=== PATIENT | male | born 1965 | race Caucasian/White ===

== ENCOUNTER 2019-02-15 17:17 | Emergency (ER) | payer OTHER ==
[2019-02-15 17:24] VITALS: BP 165/94; PULSE 70
--- NOTE | 2019-02-15 17:47 | EDM.PDOC ---
ED HPI GENERAL MEDICAL PROBLEM - General Chief Complaint: Trauma Stated Complaint: [facility] Time Seen by Provider: 02/15/19 17:37 - History of Present Illness INITIAL COMMENTS - FREE TEXT/NARRATIVE: 53-year-old male brought in by EMS after falling off a ladder. 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 The patient cannot recall how high up he was but the ladder collapsed and he fell he is not sure how he landed. He did get up and move around and attempted to clean the side windows of his truck but this became too painful fairly quick. He went inside truck stop and rested when he tried to get up and move he had excruciating pain in his left flank area. Also brown this time he noticed some numbness and tingling down his right arm and leg. And by the time he got here he had the same sensation down his left side this did get better on its own the patient currently takes Lyrica because of significant discogenic and radicular pain around his chest at C6-7. The patient cannot recall if he hit his head. But his is concerned that his memory is not what it should be. At the time of arrival here the patient has significant neck discomfort left-sided back pain that numbness and tingling he felt his extremity seems to be getting better. Back Pain Score (Numeric/FACES): 5 - Related Data Allergies Allergy/AdvReac Type Severity Reaction Status Date / Time No Known Allergies Allergy Verified 02/15/19 17:24 Home Meds: Home Meds Aspirin 81 mg PO DAILY 10/19/14 [History] Citalopram [Citalopram Hbr] 40 mg PO DAILY 10/19/14 [History] Lisinopril 10 mg PO DAILY 10/19/14 [History] Multivit &Minerals/Ferrous Fum [Complete Multivit-Mineral Liq] 9 mg PO DAILY 02/23 [History] Cyclobenzaprine [Flexeril] 10 mg PO TID #15 tab 02/15/19 [Rx] Naproxen [Naprosyn] 500 mg PO Q12HR #14 tab 02/15/19 [Rx] Pregabalin [Lyrica] 75 mg PO BID 02/15/19 [History] Past Medical History HEENT History: Reports: Impaired Vision Other HEENT History: wears glasses Cardiovascular History: Reports: Hypertension Respiratory History: Reports: Sleep Apnea Musculoskeletal History: Reports: Other (See Below) Other Musculoskeletal History: 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 Denies: No Symptoms, Constipation, Nausea, Vomiting, Other Genitourinary: Reports: No Symptoms Musculoskeletal: Reports: Neck Pain, Back Pain Skin: Reports: No Symptoms Neurological: Reports: Headache, Paresthesia. Denies: Seizure, Syncope, Tremors Psychiatric: Reports: No Symptoms ED EXAM, GENERAL - Physical Exam Exam: See Below Exam Limited By: No Limitations General Appearance: Alert, No Apparent Distress, Other (Nearly immediately after my initial evaluation the patient had a c-collar placed) Ears: Normal External Exam, Normal Canal, Hearing Grossly Normal, Normal TMs Nose: Normal Inspection, Normal Mucosa, No Blood Throat/Mouth: Normal Inspection, Normal Lips, Normal Teeth, Normal Gums, Normal Oropharynx, Normal Voice, No Airway Compromise Head: Atraumatic, Normocephalic, Other (No real signs of trauma) Neck: Tender Lateral (Worse in the left paraspinous muscles initially had some significant midline discomfort), Tender Midline. No: Lymphadenopathy (L), Lymphadenopathy (R) Respiratory/Chest: No Respiratory Distress, Lungs Clear, Normal Breath Sounds Cardiovascular: Regular Rate, Rhythm, No Edema GI/Abdominal: Normal Bowel Sounds, Soft, Other (Some vague left-sided discomfort exam is somewhat limited by has body habitus and abdominal obesity) Back Exam: Normal Inspection, Paraspinal Tenderness, Vertebral Tenderness, Other (Diffuse tenderness down the full length of the thoracic and lumbar spine no step-off deformities. Early in the exam the patient was log rolled after he had the c-collar placed allowing full visualization and exam of his back) Extremities: Normal Inspection, Normal Range of Motion, Non-Tender, No Pedal Edema, Normal Capillary Refill Neurological: Alert, Oriented, Normal Cognition Psychiatric: Normal Affect, Normal Mood Course - Vital Signs Last Recorded V/S: Last Vital Signs Temp 36.8 C 02/15/19 17:20 Pulse 70 02/15/19 17:20 Resp 19 02/15/19 17:20 BP 165/94 H 02/15/19 17:20 Pulse Ox 97 02/15/19 17:20 - Orders/Labs/Meds Labs: Laboratory Tests 02/15/19 02/15/19 02/15/19 Range/Units 18:30 18:30 18:55 WBC 7.84 (4.23-9.07) K/mm3 RBC 4.57 L (4.63-6.08) M/mm3 Hgb 14.2 (13.7-17.5) gm/dl Hct 40.4 (40.1-51.0) % MCV 88.4 (79.0-92.2) fl MCH 31.1 (25.7-32.2) pg MCHC 35.1 (32.2-35.5) g/dl RDW Std Deviation 41.2 (35.1-43.9) fL Plt Count 217 (163-337) K/mm3 MPV 9.7 (9.4-12.3) fl Neutrophils % (Manual) 55 (40-60) % Band Neutrophils % 0 (0-10) % Lymphocytes % (Manual) 38 (20-40) % Atypical Lymphs % 0 % Monocytes % (Manual) 6 (2-10) % Eosinophils % (Manual) 0 L (0.8-7.0) % Basophils % (Manual) 1 (0.2-1.2) Platelet Estimate Adequate RBC Morph Comment Normal Sodium 138 (136-145) mEq/L Potassium 3.8 (3.5-5.1) mEq/L Chloride 101 (98-107) mEq/L Carbon Dioxide 23 (21-32) mEq/L Anion Gap 17.8 H (5-15) BUN 13 (7-18) mg/dL Creatinine 0.9 (0.7-1.3) mg/dL Est Cr Clr Drug Dosing 99.14 mL/min Estimated GFR (MDRD) > 60 (>60) mL/min BUN/Creatinine Ratio 14.4 (14-18) Glucose 100 (74-106) mg/dL Calcium 9.0 (8.5-10.1) mg/dL Total Bilirubin 0.4 (0.2-1.0) mg/dL AST 29 (15-37) U/L ALT 57 (16-63) U/L Alkaline Phosphatase 74 (46-116) U/L Total Protein 7.3 (6.4-8.2) g/dl Albumin 4.2 (3.4-5.0) g/dl Globulin 3.1 gm/dL Albumin/Globulin Ratio 1.4 (1-2) Urine Color Light yellow (Yellow) Urine Appearance Clear (Clear) Urine pH 6.5 (5.0-8.0) Ur Specific Pollock 1.020 (1.005-1.030) Urine Protein Negative (Negative) Urine Glucose (UA) Negative (Negative) Urine Ketones Negative (Negative) Urine Occult Blood Negative (Negative) Urine Nitrite Negative (Negative) Urine Bilirubin Negative (Negative) Urine Urobilinogen 0.2 (0.2-1.0) Ur Leukocyte Esterase Negative (Negative) Urine RBC 0-5 (0-5) /hpf Urine WBC 0-5 (0-5) /hpf Ur Squamous Epith Cells Not seen (0-5) /hpf Urine Bacteria Rare (FEW) /hpf Urine Mucus Not seen (FEW) /hpf Meds: Medications Discontinued Medications Generic Name Dose Route Start Last Admin Trade Name Adria PRN Reason Stop Dose Admin Cyclobenzaprine HCl 10 mg 02/15/19 20:05 02/15/19 20:13 Flexeril PO 02/15/19 20:06 10 mg ONETIME ONE Administration Sodium Chloride 1,000 mls @ 999 mls/hr 02/15/19 18:17 02/15/19 18:53 Normal Saline IV 02/15/19 19:17 999 mls/hr ONETIME ONE Administration Iopamidol 100 ml 02/15/19 18:24 02/15/19 18:58 Isovue-300 (61%) IVPUSH 02/15/19 18:25 100 ml ONETIME ONE Administration - Re-Assessments/Exams Free Text/Narrative Re-Assessment/Exam: 02/15/19 20:18 With the vagueness in his history and not knowing actually how far he fell, I went ahead and CTs of the head neck chest abdomen pelvis as well as reformatted images of the lumbar and thoracic spines no acute changes were noted on any of this is labs were unrevealing. Incidental findings was a fatty liver he has degenerative joint disease in multiple places fairly significant in his neck he has moderate to severe bilateral neural foraminal stenosis at C6-7 and this is probably what is causing his discomfort that he takes Lyrica for which is actually working pretty well for him. Departure - Departure Time of Disposition: 20:20 Disposition: Home, Self-Care 01 Clinical Impression: Cervical strain, acute, Thoracic back pain, Lumbar pain, Head injury - Discharge Information Prescriptions: Naproxen [Naprosyn] 500 mg PO Q12HR #14 tab Cyclobenzaprine [Flexeril] 10 mg PO TID #15 tab Referrals: PCP,Unknown [Ordering Only Provider] - Forms: ED Department Discharge, ED Return to Work/School Form Additional Instructions: Return to the emergency room with any questions problems worsening symptoms. Follow-up with your L&I physician on Tuesday for recheck. Take the medication as directed. While at the pharmacy black pickler some famotidine, this is the generic for Pepcid and take one twice daily while on the Naprosyn. Establish with a local healthcare provider.
[2019-02-15] MEDS ORDERED: Sodium Chloride 0.9% 1,000 ML IV ONE (18:17)
[2019-02-15] MEDS ORDERED: Iopamidol 612 MG/ML 100 ML Bottle IVPUSH ONE (18:24)
--- NOTE | 2019-02-15 19:30 | CT ---
CT chest Technique: Multiple axial sections through the chest were obtained. Intravenous contrast was utilized. Comparison: No prior chest imaging. Findings: Mediastinum and hilar regions appear within normal limits. No pericardial thickening is seen. No axillary adenopathy is seen. Lungs are clear with no acute parenchymal change. No pleural effusions or pneumothorax is seen. No discrete rib fracture is appreciated. Reconstructed sagittal images show no discrete sternal fracture. Impression: 1. Nothing acute is appreciated on CT study of the chest. Diagnostic code #1 CT abdomen and pelvis Technique: Multiple axial sections were obtained from above the dome of the diaphragm inferiorly through the pubic symphysis. Intravenous contrast was utilized. No oral contrast has been given. Delayed images were obtained through the bladder. Comparison: No prior abdominal imaging. Findings: Liver shows fatty infiltration without focal abnormality being appreciated. Spleen appears within normal limits. Adrenal glands show no nodule. Pancreas is within normal limits. Kidneys show symmetric contrast enhancement without hydronephrosis or mass. Appendix is normal in size. Aorta shows atherosclerotic calcification which continues in the iliac vessels. No aneurysm is seen. No retroperitoneal adenopathy or mesenteric abnormalities are seen. No pelvic mass or adenopathy is seen. Delayed images show contrast within the distal ureters as well as contrast being seen within the bladder. Bone window settings were reviewed which show no discrete pelvic fracture or hip fracture. Impression: 1. Nothing acute is appreciated on CT study of the abdomen and pelvis. 2. Fatty infiltration is seen within the liver. Diagnostic code #2
--- NOTE | 2019-02-15 19:37 | CT ---
Head CT Technique: Multiple axial sections through the brain were obtained. Intravenous contrast was not utilized. Comparison: No prior intracranial imaging. Findings: Ventricles along with basal cisterns and sulci over the convexities appear within normal limits for the patient's age. No abnormal parenchymal densities are seen. No evidence of intracranial hemorrhage. No midline shift or mass effect is seen. Bone window settings were reviewed which show the visualized mastoid sinuses to appear clear. Paranasal sinuses are clear. No acute calvarial abnormality is seen. Impression: 1. Nothing acute is appreciated on noncontrast head CT exam. Diagnostic code #1
--- NOTE | 2019-02-15 19:37 | CT ---
CT cervical spine Technique: Multiple axial sections were obtained from above C1 inferiorly to the top of T2. Reconstructed sagittal and coronal images were reviewed. Comparison: No prior cervical spine imaging. Findings: Mid and lower cervical spine shows artifact from patient body habitus. This diminishes some details of the exam. Findings: Disc space narrowing is noted at C5-6, C6-7 and C7-T1. Slight anterior osteophytes are noted at C4-5 through C7-T1. Mild left-sided neural foraminal stenosis is noted at C5-6. Moderate to severe bilateral neural foraminal stenosis is noted at C6-7. Other neural foramina are felt to be patent. No fracture is appreciated. No abnormal subluxation is seen. Degenerative spurring is noted within the uncovertebral joints at C6-7. Impression: 1. Slightly limited study due to patient body habitus. 2. Degenerative change as noted above. 3. No acute fracture or abnormal subluxation is appreciated. Diagnostic code #2
--- NOTE | 2019-02-15 19:40 | CT ---
CT lumbar spine Technique: Multiple axial sections through the lumbar spine were obtained. Reconstructed coronal and sagittal images were obtained. Findings: Vertebral body heights are maintained. Minimal disc space narrowing is noted at L2-3. Posterior disc space narrowing is seen at L5-S1. Mild anterior osteophytes are noted at L2-3 and L3-4. No fracture is identified. No abnormal subluxation is seen. Sacroiliac joints appear within normal limits. Mild circumferential disc bulging is seen at L2-3 through L4-5. No central canal stenosis or discrete neural foraminal stenosis is seen. No traumatic disc herniation is appreciated. Impression: 1. Slight degenerative change. 2. No acute fracture or abnormal subluxation is seen on CT study of the lumbar spine. Diagnostic code #2
--- NOTE | 2019-02-15 19:40 | CT ---
CT thoracic spine Technique: Multiple axial sections through the thoracic spine were obtained. Reconstructed coronal and sagittal images were obtained. Findings: Mild diffuse disc space narrowing is noted with mild diffuse endplate osteophytes. Mild scattered degenerative change is seen within the apophyseal joints. No fracture is appreciated. No abnormal subluxation is seen. No gross disc herniation is seen. Impression: 1. Mild diffuse degenerative change. 2. Nothing acute is appreciated on CT study of the thoracic spine. Diagnostic code #2
[2019-02-15] MEDS ORDERED: Cyclobenzaprine 10 MG Tab PO ONE (20:05)
== END 2019-02-15 20:37 | disposition home or self-care (01) ==
LOC: JD.ED 17:17
DX: S16.1XXA Strain of muscle, fascia and tendon at neck level, initial encounter (principal); S09.90XA Unspecified injury of head, initial encounter; M54.6 Pain in thoracic spine; M54.5 Low back pain; Z79.82 Long term (current) use of aspirin; I10 Essential (primary) hypertension; Z79.899 Other long term (current) drug therapy; W11.XXXA Fall on and from ladder, initial encounter; Y93.89 Activity, other specified
CPT/HCPCS: 36415; 70450; 71260; 72125; 72128; 72131; 74177; 80053; 81001; 85007; 85027; 96360; 99284; A9270; J7040; Q9967

== ENCOUNTER 2020-02-06 11:47 | Emergency (ER) | payer OTHER ==
[2020-02-06 12:13] VITALS: BP 144/75; PULSE 74
[2020-02-06] MEDS ORDERED: HYDROmorphone 1 MG/ML Syringe IVPUSH ONE (12:27)
[2020-02-06] MEDS ORDERED: Ondansetron 4 MG/2 ML SDV IVPUSH ONE (12:27)
[2020-02-06] MEDS ORDERED: Ketorolac 30 MG/ML SDV IVPUSH SCH (12:30)
[2020-02-06] MEDS ORDERED: Sodium Chloride 0.9% 1,000 ML IV SCH (12:30)
--- NOTE | 2020-02-06 12:34 | EDM.PDOC ---
ED HPI GENERAL MEDICAL PROBLEM - General Chief Complaint: Respiratory Problem Stated Complaint: SOB Time Seen by Provider: 02/06/20 12:15 Source of Information: Reports: Patient History Limitations: Reports: No Limitations - History of Present Illness INITIAL COMMENTS - FREE TEXT/NARRATIVE: 54-year-old male presents to the ED for evaluation after being seen in the clinic by nurse practitioner Estefanía Judge. Patient was diagnosed with COVID-19 positivity December 17 after 2 days of symptoms. He went through the drive-through at the [facility] and was advised of the results a day later. He reports that he got a mild form of the illness with sore throat sinus congestion transient loss of taste and some mild diarrhea. 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 Patient's contracted symptoms 2 days after him. He suspects he got it after a injection in his spine in [place] a few days before he became symptomatic. He did go to [facility] after having his back injected with steroid. Patient did have a significant coughing spell this morning about 0600 hrs. and then developed diffuse left-sided anterior and posterior chest pain with inspiration. Is strongly per Reynaldo pleuritic in nature and is made worse by movement of his left upper extremity. Difficulty getting up off the table in radiology suite due to pain in his back. Patient is in significant discomfort with increased respiratory effort due to splinting. O2 sats are 100% room air. Patient reports that his appetite is returned to normal. He has not been having any significant chest pain up until this morning. Intermittent coughing spells. Labs have been drawn for cardiac markers and D-dimer. He also had a 2 view chest x-ray and two-view abdomen performed prior to coming to the ED. Was able to review the chest x-ray which reveals mild cardiomegaly per portable technique i.e. magnified. There is a trace infiltrate right lower lobe but otherwise the lungs are clear. There is no pneumothorax. Two-view abdomen shows mild increased stool throughout the colon with no evidence of bowel obstruction. Onset: Today, Sudden Onset Date: 02/06/20 Onset Time: 07:00 Duration: Hour(s):, Constant, Getting Worse Location: Reports: Chest Quality: Reports: Ache, Sharp, Stabbing Severity: Severe (9-10 out of 10.) Improves with: Reports: Rest Worsens with: Reports: Other Context: Denies: Activity (Aggravated by movement deep breathing and coughing.), Exercise, Lifting, Sick Contact, Trauma, Other Associated Symptoms: Reports: Cough, cough w sputum (No sputum this morning.), Shortness of Breath. Denies: Diaphoresis, Fever/Chills, Headaches, Loss of Ap petite, Malaise, Nausea/Vomiting, Syncope, Weakness Treatments GARMENT STEAMER: Reports: Other (see below) Other Treatments GARMENT STEAMER: tylenol Left Chest Pain Score (Numeric/FACES): 9 - Related Data Allergies Allergy/AdvReac Type Severity Reaction Status Date / Time No Known Allergies Allergy Verified 02/15/19 17:24 Home Meds: Home Meds Aspirin 81 mg PO DAILY 10/19/14 [History] Lisinopril 10 mg PO DAILY 10/19/14 [History] Multivit-Min/Ferrous Fumarate [Complete Multivit-Mineral Liq] 9 mg PO DAILY 10/19/14 [History] Cyclobenzaprine [Flexeril] 10 mg PO TID #15 tab 02/15/19 [Rx] Pregabalin [Lyrica] 75 mg PO BID 02/15/19 [History] Cyclobenzaprine [Flexeril] 10 mg PO Q8H PRN #21 tab 02/06/20 [Rx] Lisinopril/Hydrochlorothiazide [Lisinopril-Hctz 20-12.5 mg Tab] 1 tab PO DAILY 02/06/20 [History] Meloxicam 15 mg PO DAILY #12 tablet 02/06/20 [Rx] Sertraline [Zoloft] 100 mg PO DAILY 02/06/20 [History] metFORMIN [Glucophage XR] 1,000 mg PO DAILY 02/06/20 [History] oxyCODONE HCl/Acetaminophen [Percocet 10-325 mg Tablet] 1 - 2 each PO Q4H PRN #24 tablet 02/06/20 [Rx] Past Medical History HEENT History: Reports: Impaired Vision Other HEENT History: wears glasses Cardiovascular History: Reports: Hypertension Respiratory History: Reports: Sleep Apnea Musculoskeletal History: Reports: Other (See Below) Other Musculoskeletal History: 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-7 Endocrine/Metabolic History: Reports: Diabetes, Type II (To diabetic control with diet and Metformin.) Social & Family History - Caffeine Use Caffeine Use: Reports: None - Living Situation & Occupation Living situation: Reports: Occupation: Employed (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 It also seems to involve his upper), Cough ( left quadrant of the abdomen.), Sputum (Produced a little bit of yellow sputum this morning.). Denies: Wheezing Cardiovascular: Reports: Chest Pain (See history of present illness diffuse left-sided pleuritic chest pain worsened by cough and movement and deep inspiration.), Blood Pressure Problem. Denies: Claudication, Dyspnea on Exertion, Edema, Lightheadedness, Orthopnea Endocrine: Reports: Fatigue GI/Abdominal: Reports: Abdominal Pain, Constipation (Upper quadrant abdominal discomfort.) : Reports: Frequency, Other (Nocturia x2.) Musculoskeletal: Reports: Back Pain (Neck low back pain with radiculopathy into both upper extremities. Takes Lyrica) Skin: Reports: No Symptoms ( 75 mg twice daily.) Neurological: Reports: Pre-Existing Deficit (Chronic lower back pain with radiculopathy into both lower extremities.) Psychiatric: Reports: No Symptoms Hematologic/Lymphatic: Reports: No Symptoms Immunologic: Reports: No Symptoms ED EXAM, GENERAL - Physical Exam Exam: See Below Exam Limited By: No Limitations General Appearance: Alert, WD/WN, Moderate Distress, Other (Anxious and exhibiting splinting respirations due to pleuritic pain on the left side with deep breathing. O2 sats are 99 to 100% on room air. Respiratory rate of 20 but shallow respirations.) Eye Exam: Bilateral Eye: Normal Inspection, Periorbital Changes Throat/Mouth: Normal Inspection, Normal Lips, Normal Oropharynx, Other (Tongue is mildly dry and coated) Head: Atraumatic, Normocephalic Neck: Normal Inspection, Supple, Non-Tender, Full Range of Motion. No: Carotid Bruit, Lymphadenopathy (L), Lymphadenopathy (R) Respiratory/Chest: Lungs Clear, Normal Breath Sounds, No Accessory Muscle Use, Respiratory Distress (Mild tachypnea with splinting respirations left side), Other (Does have chest wall pain on firm palpation over the fourth and fifth ribs anterior axillary line and mildly in the midclavicular line anterior chest.) Cardiovascular: Normal Peripheral Pulses, Regular Rate, Rhythm, No Edema, No Gallop, No Murmur, No Rub Peripheral Pulses: 3+: Carotid (L), Carotid (R) GI/Abdominal: Normal Bowel Sounds, Soft, Non-Tender, No Organomegaly, Other (Moderately obese.) Back Exam: Other (Lamination of his back reveals diffuse paraspinal muscle spasm on the left side as compared to the right. There are 2 areas of significant point tenderness compatible with rib head subluxation I believe at thoracic 6 7 level and also at the 8-9 for level. Also diffuse pain on palpation of the latissimus dorsi muscle laterally at the T10 level posterior axillary line.) Extremities: Normal Inspection, Normal Range of Motion, Non-Tender, No Pedal Edema Neurological: Alert, Oriented, CN II-XII Intact, Normal Cognition Psychiatric: Anxious, Other Skin Exam: Warm, Dry, Intact, Normal Color, No Rash #1 Interpretation EKG Date: 02/06/20 Time: 13:05 Rhythm: NSR Rate (Beats/Min): 70 [place]: LAD-Left [place] Deviation (Mild left axis deviation -10 degrees) P-Wave: Present QRS: Other (Near Q waves leads III and aVF consider old inferior wall myocardial infarction.) ST-T: Other (T wave flattening in leads I and aVL) QT: Normal EKG Interpretation Comments: Borderline ECG no signs of acute ischemia Course - Vital Signs Last Recorded V/S: Last Vital Signs Temp 36.4 C 02/06/20 12:12 Pulse 74 02/06/20 12:12 Resp 14 02/06/20 12:12 BP 144/75 H 02/06/20 12:12 Pulse Ox 98 02/06/20 12:12 - Orders/Labs/Meds Meds: Medications Discontinued Medications Generic Name Dose Route Start Last Admin Trade Name Freq PRN Reason Stop Dose Admin Hydromorphone HCl 1 mg 02/06/20 12:27 02/06/20 13:15 Dilaudid IVPUSH 02/06/20 12:28 1 mg ONETIME ONE Administration Sodium Chloride 1,000 mls @ 150 mls/hr 02/06/20 12:30 02/06/20 13:14 Normal Saline IV 150 mls/hr ASDIRECTED TETO Administration Influenza Virus Vaccine 60 mcg 02/06/20 14:15 02/06/20 15:10 Fluzone Quad Syringe IM 02/06/20 14:16 60 mcg .ONCE ONE Administration Ketorolac Tromethamine 30 mg 02/06/20 12:30 02/06/20 13:23 Toradol IVPUSH 30 mg ONETIME TETO Administration Ondansetron HCl 4 mg 02/06/20 12:27 02/06/20 13:14 Zofran IVPUSH 02/06/20 12:28 4 mg ONETIME ONE Administration - Radiology Interpretation Free Text/Narrative:: 54-year-old male presents to the ED from the Covid clinic to being seen by Estefanía Nava. Patient was COVID-19 + December 17 when he was tested and got a firm diagnosis on December 18. By history he had a mild form of the illness with sinus congestion transient loss of taste mild diarrhea mild loss of appetite and mild cough. He presented to the clinic this morning due to severe left-sided chest pain worsened by deep breathing and movement particularly trying to get up from a lying down position. Patient states every morning he has a productive sounding cough and had a severe coughing jag this morning about 0600 hrs. followed by development of the left-sided anterior and posterior chest pain. The pain is strongly pleuritic in nature made worse by movement and deep breathing. Labs were performed through the walk-in clinic and x-ray of the chest x2 view and two-view abdomen. Patient was exhibiting significant respiratory distress and was therefore sent to the ED. On my examination patient pain is coming from his back with rib head subluxation at 2 levels with significant paraspinal muscle spasm on the left side. He also has mild left anterior chest pain on palpation of the fourth and fifth ribs midclavicular line and left anterior axillary line. Patient's pain was made much worse by sitting him up from the seated position. Two-view x-ray of the chest reveals magnified view with mild cardiomegaly suggested. Lungs were clear. Two-view abdomen reveals mild crease stool throughout the colon. Plan patient will receive IV normal saline at 150 mils per hour. Given Dilaudid 1 mg IV with Zofran 4 mg IV for acute pain relief. - Re-Assessments/Exams Free Text/Narrative Re-Assessment/Exam: 02/06/20 12:50 labs are coming back now. White count is normal at 7.88. The differential shows 60% neutrophils. Hemoglobin is 14.1 with hematocrit of 41.2. Platelet count normal at 218,000. Chemistry shows a sodium of 137 a potassium low normal at 3.5. Chloride 101 with a bicarb of 25 anion gap is 14.5. Random glucose check was 113. BUN 14 with a creatinine of 1.0 and a GFR greater than 60. Total protein is 7.2 with an albumin fraction of 4.1. Liver function is normal. Troponin I was less than 0.017. CRP 0.01. D-dimer 0.33. Departure - Departure Time of Disposition: 14:33 Disposition: Home, Self-Care 01 Condition: Fair Clinical Impression: Left-sided chest wall pain, Pleurisy Thoracic back pain Qualifiers: Chronicity: acute Back pain laterality: left Qualified Code(s): M54.6 - Pain in thoracic spine - Discharge Information *PRESCRIPTION DRUG MONITORING PROGRAM REVIEWED*: Not Applicable *COPY OF PRESCRIPTION DRUG MONITORING REPORT IN PATIENT SULEIMAN: Not Applicable Prescriptions: Cyclobenzaprine [Flexeril] 10 mg PO Q8H PRN #21 tab PRN Reason: Muscle spasm relief Meloxicam 15 mg PO DAILY #12 tablet oxyCODONE HCl/Acetaminophen [Percocet 10-325 mg Tablet] 1 - 2 each PO Q4H PRN #24 tablet PRN Reason: back pain Instructions: Acute Back Pain, Adult, Thoracic Strain, [id number] Referrals: Kavita De La Rosa PA-C [Primary Care Provider] - Forms: ED Department Discharge, ED Return to Work/School Form Additional Instructions: Evaluation in the emergency room today in regards to development of diffuse left-sided chest and back pain. This was associated with development of a severe paroxysmal cough early this morning. History of diagnosed COVID-19 illness early December 17. Minimal symptoms developed with the Covid type illness. However by history you have continued to have mild pleuritic chest pain on the left side with intermittent paroxysmal cough usually worse in the mornings. On examination in the ED you were found to have significant paraspinal muscle spasm on the left back. There are 2 rib heads that have subluxated I believe at thoracic 6 and thoracic 9. Suggest follow-up with a chiropractor tomorrow to have these rib heads put back into position. Complete work-up for COVID-19 related illness completed today and it was negative for any signs of blood clot in the lung or elevated heart enzymes etc. There is no clinical evidence of heart related illness. The history however still suggest some inflammation of the left lung lining or the pleura. We call this pleurisy was as a sharp stabbing pain and inspiration. You were treated with intravenous Dilaudid 1 mg and Toradol 30 mg IV in the ED. Suggest use of Percocet tablet 10/325 mg strength 1 or 2 tablets every 4-6 hours as needed for relief of severe pain left back over the next couple of days. May use muscle spasm medication Flexeril 10 mg every 8 hours if needed for relief of pain usually at bedtime as it can cause some sedation. Suggest use of anti-inflammatory meloxicam 15 mg every day in the morning starting tomorrow morning. Off work tomorrow and a note will be given in this regard. Tentatively you should be able to return to work Tuesday once things settle down. It is important to try and get into the chiropractor tomorrow and many of the chiropractors only work part days on Fridays or not at all. Suggest phoning for an appointment today. Sepsis Event Note (ED) - Evaluation Sepsis Screening Result: No Definite Risk
[2020-02-06] MEDS ORDERED: FLU VACC QS2020-21(6MOS UP)/PF 60 MCG/0.5 ML SYRINGE IM ONE (14:15)
== END 2020-02-06 15:10 | disposition home or self-care (01) ==
LOC: JD.ED 11:47
DX: R09.1 Pleurisy (principal); M54.6 Pain in thoracic spine; I10 Essential (primary) hypertension; E11.9 Type 2 diabetes mellitus without complications; Z23 Encounter for immunization; Z79.82 Long term (current) use of aspirin; Z79.899 Other long term (current) drug therapy; Z79.84 Long term (current) use of oral hypoglycemic drugs
CPT/HCPCS: 90471; 90686; 93005; 96374; 96375; 99284; J1170; J1885; J2405; J7030; 93010; G0008